=== PATIENT | male | born 1935 | race Caucasian/White ===

== ENCOUNTER → 2017-05-06 | Outpatient (CLI) | payer MEDICARE ==
[~2017-05-06] MED LIST: AZO PO; CENTRUM COMPLE1 EACH PO; FLOMAX0.4 MG PO; FOSAMAX70 MG PO; LEVAQUIN500 MG PO; MOBIC15 MG PO; OMEGA 3-6-9 CO400 MG PO; TYLENOL EXTRA500 MG PO; VIACTIV SOFT C1 EACH PO; ZOCOR40 MG PO
[2017-05-06 15:15] LABS: ALBUMIN 3.9 gm/dL (3.5-5.0); ANION GAP 13.7 (10.0-19.0); CALCIUM 8.7 mg/dL (8.5-10.5); CREATININE 2.2 mg/dL (0.6-1.3); POTASSIUM 3.7 mMol/L (3.7-5.1); TOTAL BILIRUBIN 1.1 mg/dL (0.0-1.5); TOTAL PROTEIN 6.9 g/dL (6.0-8.4)
== END | disposition disaster alternative care site (69) ==
LOC: GLAB 14:00 → GRAD 15:00
PROVIDERS: Urology
DX: R31.0 Gross hematuria (principal); N20.0 Calculus of kidney; N21.0 Calculus in bladder; N40.0 Benign prostatic hyperplasia without lower urinary tract symptoms; K57.30 Diverticulosis of large intestine without perforation or abscess without bleeding

== ENCOUNTER → 2017-05-09 | Day surgery (SDC) | payer MEDICARE ==
[~2017-05-09] VITALS: Ht 165.1 cm; Wt 64.0 kg
--- NOTE | ~2017-05-09 | OR ---
PATIENT'S NAME: ILANA LOVE [facility] AGE: 82 Y [address] ROOM: [place] [address] LOCATION: [facility] ADMIT DATE: 05/09/2017 OR/Procedure Report DISCHARGE DATE: FAMILY PHYSICIAN: GUADALUPE LOZANO MD ATTENDING PHYSICIAN: EYAD LUTZ SURGEON: Eyad Lutz MD CHANNEL PARTNERS: None. DATE OF PROCEDURE: 05/09/2017 PREOPERATIVE DIAGNOSES: 1. Bladder stone. 2. Left ureteral calculi. 3. Benign prostatic hyperplasia. POSTOPERATIVE DIAGNOSES: 1. Bladder stone. 2. Left ureteral calculi. 3. Benign prostatic hyperplasia. PROCEDURES: 1. Cystolithotripsy (stone size greater than 2.5 cm). 2. Left ureteroscopy with laser lithotripsy. 3. Left ureteroscopic stone extraction. 4. Cystoscopy with placement of indwelling left ureteral stent. INDICATIONS FOR PROCEDURE: The patient is a pleasant 82-year-old male with history of recurrent nephrolithiasis, but also recent gross hematuria and bladder stone. The patient was explained the risks, benefits, indications, and alternatives to the above procedures and wished to proceed and consented freely. DESCRIPTION OF OPERATION: The patient was brought back to the operating room, where he was placed on the OR table in the supine position. A surgical time- out was called, where the patient identification, surgical site, and procedure were then verified. We also did verify the patient received IV Levaquin antibiotic within an hour of beginning of the procedure. The patient then underwent successful administration of monitored anesthesia care. The patient was then moved and placed in a low lithotomy position, where his genital area was then prepped and draped in the usual sterile fashion. I began by advancing a rigid cystoscope easily into the patient's urinary bladder. His anterior urethra was within normal limits. His posterior urethra was notable for severe trilobar hyperplasia of the prostate with an intravesical median prostatic lobe. I did visualize the 2.5 to 3 cm bladder stone. His ureteral orifices were noted to be in their orthotopic location. His bladder did have evidence of long-term bladder outlet obstruction including moderate 2+ bladder PATIENT'S NAME: ILANA LOVE [facility] AGE: 82 Y [address] ROOM: [place] [address] LOCATION: [facility] ADMIT DATE: 05/09/2017 OR/Procedure Report DISCHARGE DATE: FAMILY PHYSICIAN: GUADALUPE LOZANO MD ATTENDING PHYSICIAN: EYAD LUTZ. The previous visualized area of mucosal erythema along his right lateral bladder wall was no longer visualized, and there was no evidence of any bladder tumors or mucosal abnormalities on full cystoscopy with the 70- degree lens. I then began by carefully advancing a Sensor guidewire, cannulating the patient's left ureteral orifice. It did appear that there was a distal left ureteral stone as I was meeting some resistance and did visualize also a calcification on fluoroscopy. I was able to carefully navigate the wire past the level of the stone and up to the level of a second proximal ureteral stone. I then emptied the patient's bladder and then alongside the wire, I advanced a semi-rigid ureteroscope and using a second wire, I was able to cannulate into his left distal ureter. I did visualize a left distal ureteral stone which appeared to be too large to extract without fragmentation. I then used the holmium laser fiber to carefully fragment the stone up into smaller pieces, and then used the Horn stone basket to carefully entrap several of the fragments, which were sent for stone analysis. I then advanced the rigid ureteroscope up to the proximal ureteral stone, and this also appeared to be too large to extract without fragmentation. I then used the holmium laser fiber to carefully break the stone up into fragments smaller than 1 mm in size. A lot of these fragments then migrated proximally up into the patient's left renal collecting system. On fluoroscopy, there did not appear to be any large residual fragments remaining, so I did not feel it was necessary to try to get a flexible ureteroscope up into his kidney to retrieve any of the fragments. I then carefully withdrew the ureteroscope, and there was no evidence of any residual fragments along his ureter nor was there any evidence of any ureteral injury. Then, over the remaining wire, I advanced a 4.8-Bruneian multi-length ureteral stent, deploying it, noting a good curl fluoroscopically in the patient's left renal collecting system as well as a good curl visually and fluoroscopically within the patient's bladder. I then proceeded on with treating his bladder stone and had advanced the 25- Bruneian nephroscope into the patient's urinary bladder. I did have to carefully dilate his urethral meatus some up to 30-Bruneian in caliber with the male urethral sound to accommodate the nephroscope. Upon entry into his bladder, I then focused my attention to the large bladder stone and used the Olympus ShockPulse device to carefully fragment and evacuate out all of the bladder stone. Once I was complete, there was no evidence of any remaining stones within his bladder. He did have a mild amount of mucosal oozing from his median lobe of the prostate, but I did not feel it was substantial enough to warrant a catheter placement. I then emptied the patient's bladder, and the patient was then taken out of the lithotomy position, where he was then transferred over to the recovery bed after being awoken from monitored anesthesia care and transferred to the recovery room in good condition. The patient did tolerate the procedure well. COMPLICATIONS: None. PATIENT'S NAME: ILANA LOVE [facility] AGE: 82 Y [address] ROOM: [place] [address] LOCATION: [facility] ADMIT DATE: 05/09/2017 OR/Procedure Report DISCHARGE DATE: FAMILY PHYSICIAN: GUADALUPE LOZANO MD ATTENDING PHYSICIAN: EYAD LUTZ SPECIMENS: Left ureteral stone for stone analysis. ESTIMATED BLOOD LOSS: Minimal. DRAINS: Indwelling 4.8-Bruneian multi-length left ureteral stent. FOLLOWUP PLAN: We will plan to have the patient back for followup in [facility]rology Clinic in approximately 2-3 weeks for possible cystoscopy and stent removal if no large residual fragments remain on plain film, KUB, which we will plan to obtain just prior to his appointment. EYAD LUTZ MD GP/modl /[id number] CC: LARRY LOPES APRN d: 05/09/17 2216 t: 05/12/17 1833, OPERATIVE SUMMARY
[2017-05-09 12:39] LABS: BASOPHIL # 0.1 K/uL (0.0-0.2); BASOPHIL % 1.1 %; EOSINOPHIL # 0.1 K/uL (0.0-0.5); EOSINOPHIL % 2.1 %; HEMATOCRIT 44.8 % (33.0-50.0); HEMOGLOBIN 14.7 g/dL (11.0-16.0); IMMATURE GRANULOCYTE % 0.5 %; LYMPHOCYTE # 1.5 K/uL (0.8-4.0); LYMPHOCYTE % 24.4 %; MCH 28.7 pg (27.0-34.0); MCHC 32.8 gm/dL (32.0-36.5); MCV 87.3 fl (83.0-98.0); MONOCYTE # 0.5 K/uL (0.0-1.0); MONOCYTE % 7.9 %; MPV 10.1 fl (9.4-12.4); NRBC % 0 /100WBC (0-0.00); PLATELET COUNT 229 K/uL (150-450); RBC 5.13 M/uL (3.50-5.50); RDW-CV 13.2 % (11.9-14.6); WBC 6.3 K/uL (4.0-11.0)
[2017-05-09 13:05] LABS: ANION GAP 9.1 (10.0-19.0); CALCIUM 9.3 mg/dL (8.5-10.5); CREATININE 1.4 mg/dL (0.6-1.3); POTASSIUM 4.1 mMol/L (3.7-5.1); TOTAL PROTEIN 7.1 g/dL (6.0-8.4)
== END ==
LOC: GPOC 05-06 16:00 → GSDC 11:51 → GPOC 12:00
PROVIDERS: Urology
PROC: 0TCB8ZZ Extirpation of Matter from Bladder, Via Natural or Artificial Opening Endoscopic (ICD-10-PCS; principal; 2017-05-09)
PROC: 0T778DZ Dilation of Left Ureter with Intraluminal Device, Via Natural or Artificial Opening Endoscopic (ICD-10-PCS; 2017-05-09)
PROC: 0TC78ZZ Extirpation of Matter from Left Ureter, Via Natural or Artificial Opening Endoscopic (ICD-10-PCS; 2017-05-09)
DX: N21.0 Calculus in bladder (principal); N20.1 Calculus of ureter; N40.0 Benign prostatic hyperplasia without lower urinary tract symptoms; E78.5 Hyperlipidemia, unspecified; Z98.890 Other specified postprocedural states; Z79.899 Other long term (current) drug therapy
CPT/HCPCS: C1769; J1956; J2001; J7030

== ENCOUNTER → 2017-05-20 | Outpatient (CLI) | payer MEDICARE | LOC: GRAD 11:27 | DX: Z09 Encounter for follow-up examination after completed treatment for conditions other than malignant neoplasm (principal); Z96.0 Presence of urogenital implants ==